=== PATIENT | female | born 1980 | race African-American/Black ===

== ENCOUNTER 2018-04-07 07:22 | Emergency (ER) | payer SELFPAY ==
[2018-04-07] MEDS ORDERED: Acetaminophen 500 MG TAB ONE (08:00)
[2018-04-07] MEDS ORDERED: Adacel (T-DAP) 0.5 ML VIAL ONE (08:00)
[2018-04-07 08:08] LABS: #Basophils 0.1 thou/uL (0.0-0.2); #Eosinphils 0.1 thou/uL (0.0-0.7); #Lymphocytes 2.4 thou/uL (1.20-3.40); #Monocytes 0.3 thou/uL (0.11-0.59); #Neutrophils 2.8 thou/uL (1.40-6.50); %Basophils 1.3 % (0.0-1.0); %Lymphocytes 41.5 % (21.0-51.0); %Monocytes 6.1 % (0.0-10.0); %Neutrophils 50.2 % (42.0-75.0); Hemoglobin 15.3 g/dL (12.0-16.0); Mean Corpuscular HGB CONC 34.1 g/dL (32.0-36.0); Mean Corpuscular Hemoglobin 36.4 pg (27.0-31.0); Mean Platelet Volume 6.1 fL (7.4-10.4); Platelet Count 283 thou/uL (130-400); RBC Distribution Width 15.1 % (11.5-14.5); Red Blood Cell (RBC) Count 4.21 mill/uL (4.20-5.40); White Blood Cell (WBC) Count 5.7 thou/uL (4.8-10.8)
--- NOTE | 2018-04-07 08:09 | RAD ---
CHEST 1 VIEW PORTABLE: Date: 04/07/18 HISTORY: 38-year-old female with history of chest pain. FINDINGS: Monitor leads overlie the chest. Heart size is normal. The lungs are clear. No confluent pneumonia, o vert edema, or pleural effusion. IMPRESSION: No acute intrathoracic disease. POS: [facility]
[2018-04-07 08:15] LABS: BHCG - Serum Negative (NEGATIVE); Pregs Control Background? CLEAR/WHITE (CLR/WHITE); Pregs Control Bar Appear? YES (CONTROL BAR)
[2018-04-07 08:26] LABS: ALT (SGPT) 34 U/L (8-55); AST (SGOT) 55 U/L (5-34); Albumin 4.8 g/dL (3.5-5.0); Alkaline Phosphatase 68 U/L (40-150); Anion Gap 16 mmol/L (10-20); BUN (Urea Nitrogen) 7 mg/dL (7.0-18.7); Bilirubin, Total 0.2 mg/dL (0.2-1.2); Calc. Creatinine Clearance 0 mL/min (70-130); Calcium 9.2 mg/dL (7.8-10.44); Carbon Dioxide 23 mmol/L (22-29); Chloride 107 mmol/L (98-107); Estimated GFR-MDRD Greater than 90; Globulin 3.2 g/dL (2.4-3.5); Glucose 81 mg/dL (70-105); Potassium 3.5 mmol/L (3.5-5.1); Sodium 142 mmol/L (136-145)
[2018-04-07 08:31] LABS: CKMB 1.5 ng/mL (0-6.6); Troponin I Less than 0.010 ng/mL (< 0.028)
[2018-04-07] MEDS ORDERED: Ibuprofen 200 MG TAB ONE (08:52)
== END 2018-04-07 09:38 ==
LOC: ERS 07:22
DX: R07.89 Other chest pain (principal); F10.129 Alcohol abuse with intoxication, unspecified; Y90.8 Blood alcohol level of 240 mg/100 ml or more; I10 Essential (primary) hypertension; S60.519A Abrasion of unspecified hand, initial encounter; S90.416A Abrasion, unspecified lesser toe(s), initial encounter; G51.0 Bell's palsy; F41.9 Anxiety disorder, unspecified; Z23 Encounter for immunization; X58.XXXA Exposure to other specified factors, initial encounter
CPT/HCPCS: 71045; 80053; 80307; 82553; 84484; 84703; 85025; 90471; 90715; 93005